=== PATIENT | female | born 1955 | race Caucasian/White ===

== ENCOUNTER 2018-07-28 08:03 | Outpatient (CLI) | payer MEDICAID | END 2018-07-28 08:04 | disposition home or self-care (01) | LOC: C.CARD 08:03 | DX: R07.9 Chest pain, unspecified (principal); R06.00 Dyspnea, unspecified; I10 Essential (primary) hypertension; E11.42 Type 2 diabetes mellitus with diabetic polyneuropathy; E78.2 Mixed hyperlipidemia ==